=== PATIENT | male | born 1965 | race Caucasian/White ===

== ENCOUNTER 2020-04-21 22:23 | Emergency (ER) | payer SELFPAY ==
[~2020-04-21] VITALS: Ht 180.3 cm; Wt 80.0 kg
[2020-04-21 23:50] VITALS: BP 131/94
== END 2020-04-22 00:01 | disposition home or self-care (01) | DRG 605 ==
LOC: ED 22:23
PROC: 0HQ1XZZ Repair Face Skin, External Approach (ICD-10-PCS; principal; 2020-04-21)
DX: S01.81XA Laceration without foreign body of other part of head, initial encounter (principal); W01.198A Fall on same level from slipping, tripping and stumbling with subsequent striking against other object, initial encounter; Y92.009 Unspecified place in unspecified non-institutional (private) residence as the place of occurrence of the external cause